=== PATIENT | male | born 1980 | race Hispanic/Latino ===

== ENCOUNTER → 2018-08-26 | Outpatient (CLI) | payer OTHER ==
--- NOTE | 2018-08-27 08:25 | Diagnostic Imaging Report ---
TECHNIQUE: Magnetic resonance imaging of the LEFT KNEE was performed WITHOUT injected contrast. HISTORY: Left knee pain COMPARISON: None available. FINDINGS: LIGAMENTS AND TENDONS: ACL: Intact PCL: Intact Collateral ligaments: Intact Iliotibial band: Unremarkable Popliteal tendon: Intact Extensor mechanism: Intact JOINT: Menisci: Medial: Intact Lateral: Vertical longitudinal tear involving the body and posterior horn with flipped fragment anteriorly and medially within the intercondylar notch. Articular Cartilage: Medial Compartment: No focal defect. Lateral Compartment: No focal defect. Patellofemoral Compartment: Cartilage thinning without focal defect. Joint Fluid: Moderate joint effusion. BONE: No focal or infiltrative bone marrow replacing abnormality. No acute fracture. SOFT TISSUES: Otherwise, unremarkable. IMPRESSION: Lateral meniscus partial bucket-handle tear involving the body and posterior horn. Moderate joint effusion. Signed by: Dr. Aramis Hamilton M.D. on 08/27/2018 8:22 AM
== END ==
LOC: MRI 16:22
PROVIDERS: ATTEND Family Medicine
DX: M25.462 Effusion, left knee (principal)

== ENCOUNTER → 2018-10-08 | Day surgery (SDC) | payer OTHER ==
[2018-10-06 11:10] LABS: ANION GAP 12.3 mmol/L (8-16); BLOOD UREA NITROGEN 16 mg/dL (7-26); BUN/CREATININE RATIO 21 (6-25); CARBON DIOXIDE 26 mmol/L (22-29); CHLORIDE 108 mmol/L (98-107); CREATININE, SERUM 0.76 mg/dL (0.72-1.25); EST GLOMERULAR FILTRATION RATE > 60 ML/MIN (60-); GLUCOSE 89 mg/dL (74-118); POTASSIUM 4.3 mmol/L (3.5-5.1); SODIUM 142 mmol/L (136-145)
[~2018-10-08] MED LIST: BUPIVACAINE 0.5%/EPI 30 ML SDV INJ ONE; CEFAZOLIN SOD 2 GM/D5W 50ML 50 ML IV ONE; DEXAMETHASONE SOD PHOS INJ 4 MG/ML VIAL ONE; FENTANYL CITRATE/PF 100MCG/2 ML INJ ONE; KETAMINE HCL INJ 50 MG/ML 10 ML VIAL ONE; LIDOCAINE HCL 2% LOCAL INJ 5 ML SDV VIAL INJ ONE; METFORMIN HCL500 MG PO; MIDAZOLAM HCL 2 MG/2 ML VIAL ONE; ONDANSETRON HCL INJ 2MG/ML 2ML 2 MG/ML VIAL ONE; PROPOFOL IV EMULSION 10 MG/ML 20 ML VIAL ONE; SEVOFLURANE INHAL SOLN 250 ML PEN BTL ONE
--- OUTSIDE RECORDS SUMMARY | 2018-10-08 05:32 | XMS REPORT ---
Author Author [facility] Address Unknown Phone Unavailable Care Team Providers Care Data Software Engineer Name Role Phone BECKY BRUNO Unavailable Unavailable Problems This patient has no known problems. Allergies, Adverse Reactions, Alerts This patient has no known allergies or adverse reactions. Medications This patient has no known medications. Results Test Description Test Time Test Comments Text Results Atomic Results Result Comments MRI KNEE LEFT WO 2018-08-27 08:17:00 [place] [id number] Patient Name: JAY METZGER MR #: [id number] : 1980 Age/Sex: 38/M Req #: [id number] Adm Physician: Ordered by: BECKY BRUNO DO Report #: [id number] Location: MRI Room/Bed: Procedure: [id number] MRI/MRI KNEE LEFT WO Exam Date: 08/26/18 Exam Time: 1655 REPORT STATUS: Signed TECHNIQUE: Magnetic resonance imaging of the LEFT KNEE was performed WITHOUT injected contrast. HISTORY: Left knee pain COMPARISON: None available. FINDINGS: LIGAMENTS AND TENDONS: ACL: Intact PCL: Intact Collateral ligaments: Intact Iliotibial band: Unremarkable Popliteal tendon: Intact Extensor mechanism: Intact JOINT: Menisci: Medial: Intact Lateral: Vertical longitudinal tear involving the body and posterior horn with flipped fragment anteriorly and medially within the intercondylar notch. Articular Cartilage: Medial Compartment: No focal defect. Lateral Compartment: No focal defect. Patellofemoral Compartment: Cartilage thinning without focal defect. Joint Fluid: Moderate joint effusion. BONE: No focal or infiltrative bone marrow replacing abnormality. No acute fracture. SOFT TISSUES: Otherwise, unremarkable. IMPRESSION: Lateral meniscus partial b ucket-handle tear involving the body and posterior horn. Moderate joint effusion. Signed by: Dr. Katie Machado M.D. on 08/27/2018 8:22 AM Dictated By: KATIE MACHADO MD 1 Transcribed By: EMMANUEL on 08/27/18821 COPY TO: BECKY BRUNO DO
[2018-10-08 09:50] VITALS: BP 113/79
--- NOTE | 2018-10-09 15:12 | Operative Report ---
DATE OF PROCEDURE: October 08, 2018 PREOPERATIVE DIAGNOSIS: Left knee lateral meniscus tear. POSTOPERATIVE DIAGNOSIS: Left knee lateral meniscus tear. PROCEDURES PERFORMED 1. Left knee examination under anesthesia. 2. Left knee arthroscopy. 3. Left knee partial lateral meniscectomy. KITCHEN HELP HANDYMAN: None. ANESTHESIA: General endotracheal intubation anesthesia. INTRAVENOUS FLUIDS: Per the anesthesia record. DESCRIPTION OF PROCEDURE: Mr. Harding was taken to the operating room and placed in the supine position on the operating table. Following induction general anesthesia as well as endotracheal intubation, the patient's left lower extremity was examined under anesthesia. It was found to have a mild effusion within the knee joint but an otherwise ligamentously stable knee. The patient's lower extremity was prepped and draped in the standard surgical fashion. A 2-portal technique was used to provide this patient arthroscopic evaluation of the knee joint. Examination of the suprapatellar pouch, medial and lateral gutters found no evidence of loose bodies. There was no evidence of chondromalacia of the patellar and trochlear surfaces. Scope was advanced in the medial compartment. Examination of the medial compartment demonstrated no pathology. The scope was advanced into the intercondylar notch, and the anterior cruciate ligament was identified and found to be intact. The scope was then advanced towards the lateral compartment, and a piece of extruded lateral meniscus was found to be at the entrance of the lateral compartment. A probe was placed in the knee joint, and the meniscal fragment was pushed into the lateral compartment. The scope was then advanced into the lateral compartment, and the articular surfaces were without significant chondromalacia. Examination of the lateral meniscus demonstrated a torn and macerated bucket-handle tear of the lateral meniscus. The posterior half of the meniscus was severely macerated and unfixable. The decision was, therefore, made to perform a partial meniscectomy. The torn portion of the meniscus was resected. This left a remnant of the posterior rim of the meniscus in the posterior half and greater than half of the meniscus in the mid portion and anterior portion of the lateral meniscus. The knee was then deflated of it sterile normal saline. The portal sites were closed. Sterile dressings were applied. The patient was awakened and taken to the postanesthesia care unit in stable condition. Job#: [id number]
== END | disposition home or self-care (01) ==
LOC: OR 05:25
PROVIDERS: ATTEND Specialist
DX: S83.252A Bucket-handle tear of lateral meniscus, current injury, left knee, initial encounter (principal); E11.9 Type 2 diabetes mellitus without complications; Z79.84 Long term (current) use of oral hypoglycemic drugs; Z01.810 Encounter for preprocedural cardiovascular examination; Z01.812 Encounter for preprocedural laboratory examination
CPT/HCPCS: 29881; 36415 ×2; 80048; 82948; 93005; J0690; J1100; J2001; J2250; J2405; J2704